=== PATIENT | male | born 1950 | race Caucasian/White ===

== ENCOUNTER 2021-06-23 06:55 | Day surgery (SDC) | payer BC ==
[2021-06-23] MEDS ORDERED: Dexamethasone 4 MG/ML SDV IV ONE (06:56)
[2021-06-23] MEDS ORDERED: Sodium Chloride 0.9% 10 ML Syringe IV ONE (06:56)
[2021-06-23] MEDS ORDERED: Midazolam 1 MG/ML 2 ML SDV IV ONE (06:56)
[2021-06-23] MEDS ORDERED: Acetaminophen 325 MG Tab PO PRN (07:00)
[2021-06-23] MEDS ORDERED: Tobramycin 0.3% Ophth Drops 5 ML Bottle EYELF ONE (07:00)
[2021-06-23] MEDS ORDERED: Phenylephrine 10% Ophth Soln 5 ML Bot EYELF ONE (07:00)
[2021-06-23] MEDS ORDERED: Tropicamide 1% Ophth Soln 15 ML Bottle EYELF ONE (07:00)
[2021-06-23] MEDS ORDERED: Povidone-Iodine 5% Sterile Ophth Soln 30 ML Bottle EYELF ONE ×2 (07:00→08:31)
[2021-06-23] MEDS ORDERED: Proparacaine 0.5% Ophth Soln 15 ML Bottle EYELF ONE (07:00)
[2021-06-23] MEDS ORDERED: Timolol Maleate 0.5% Ophth Soln 5 ML Bottle EYELF ONE (07:00)
[2021-06-23] MEDS ORDERED: Moxifloxacin 0.5% Ophth Soln 3 ML Bottle EYELF ONE (07:00)
[2021-06-23] MEDS ORDERED: Cataract Ophth Solution EYELF ONE (07:00)
[2021-06-23] MEDS ORDERED: Ondansetron 4 MG/2 ML SDV IVPUSH PRN (07:00)
[2021-06-23] MEDS ORDERED: Acetaminophen/Codeine 300-30 MG Tab PO PRN (07:00)
[2021-06-23] MEDS ORDERED: Tetracaine HCl/PF 0.5% 4 ML Bottle EYELF ONE (08:30)
[2021-06-23] MEDS ORDERED: Lidocaine 1% 30 ML SDV ONE (08:31)
[2021-06-23] MEDS ORDERED: Apraclonidine 0.5% Ophth Soln 5 ML Bot EYELF ONE (08:32)
[2021-06-23] MEDS ORDERED: Diclofenac Sodium 0.1% Ophth Soln 5 ML Bottle EYELF ONE (08:33)
[2021-06-23] MEDS ORDERED: Vancomycin 500 MG SDV EYELF ONE (08:33)
[2021-06-23] MEDS ORDERED: Balanced Salt Solution Ophth Irrig 500 ML Bottle IOCULAR ONE (08:33)
[2021-06-23] MEDS ORDERED: Dexamethasone/Neomycin/Polymyxin B Ophth Oint 3.5 GM Tube EYELF ONE (08:33)
[2021-06-23] MEDS ORDERED: Chondroitin Sulfate/Hyaluronate Sodium Ophth Inj 0.75 ML Syringe EYELF ONE (08:34)
== END 2021-06-23 09:42 | disposition home or self-care (01) ==
LOC: DL.SDS 06:55
PROVIDERS: ATTEND Ophthalmology
DX: H25.812 Combined forms of age-related cataract, left eye (principal); I10 Essential (primary) hypertension; E78.00 Pure hypercholesterolemia, unspecified; R73.01 Impaired fasting glucose; R82.2 Biliuria; Z98.890 Other specified postprocedural states; Z79.899 Other long term (current) drug therapy; Z79.82 Long term (current) use of aspirin
CPT/HCPCS: 00142; 66984; A9270; J1100; J2250; J3370; V2788

== ENCOUNTER 2021-06-30 06:53 | Day surgery (SDC) | payer BC ==
[2021-06-30] MEDS ORDERED: Dexamethasone 4 MG/ML SDV IV ONE ×2 (06:54)
[2021-06-30] MEDS ORDERED: Midazolam 1 MG/ML 2 ML SDV IV ONE ×2 (06:54)
[2021-06-30] MEDS ORDERED: Sodium Chloride 0.9% 10 ML Syringe IV ONE ×2 (06:54)
[2021-06-30] MEDS ORDERED: Phenylephrine 10% Ophth Soln 5 ML Bot EYERT ONE (07:00)
[2021-06-30] MEDS ORDERED: Acetaminophen 325 MG Tab PO PRN (07:00)
[2021-06-30] MEDS ORDERED: Acetaminophen/Codeine 300-30 MG Tab PO PRN (07:00)
[2021-06-30] MEDS ORDERED: Ondansetron 4 MG/2 ML SDV IVPUSH PRN (07:00)
[2021-06-30] MEDS ORDERED: Moxifloxacin 0.5% Ophth Soln 3 ML Bottle EYERT ONE (07:00)
[2021-06-30] MEDS ORDERED: Povidone-Iodine 5% Sterile Ophth Soln 30 ML Bottle EYERT ONE ×2 (07:00→08:22)
[2021-06-30] MEDS ORDERED: Proparacaine 0.5% Ophth Soln 15 ML Bottle EYERT ONE (07:00)
[2021-06-30] MEDS ORDERED: Cataract Ophth Solution EYERT ONE (07:00)
[2021-06-30] MEDS ORDERED: Timolol Maleate 0.5% Ophth Soln 5 ML Bottle EYERT ONE (07:00)
[2021-06-30] MEDS ORDERED: Tropicamide 1% Ophth Soln 15 ML Bottle EYERT ONE (07:00)
[2021-06-30] MEDS ORDERED: Tetracaine HCl/PF 0.5% 4 ML Bottle EYERT ONE (08:22)
[2021-06-30] MEDS ORDERED: Lidocaine 1% 30 ML SDV ONE (08:22)
[2021-06-30] MEDS ORDERED: Diclofenac Sodium 0.1% Ophth Soln 5 ML Bottle EYERT ONE (08:23)
[2021-06-30] MEDS ORDERED: Apraclonidine 0.5% Ophth Soln 5 ML Bot EYERT ONE (08:23)
[2021-06-30] MEDS ORDERED: Dexamethasone/Neomycin/Polymyxin B Ophth Oint 3.5 GM Tube EYERT ONE (08:24)
[2021-06-30] MEDS ORDERED: Chondroitin Sulfate/Hyaluronate Sodium Ophth Inj 0.75 ML Syringe EYERT ONE (08:25)
[2021-06-30] MEDS ORDERED: Balanced Salt Solution Ophth Irrig 500 ML Bottle IOCULAR ONE (08:25)
[2021-06-30] MEDS ORDERED: Vancomycin 500 MG SDV EYERT ONE (08:25)
== END 2021-06-30 09:17 | disposition home or self-care (01) ==
LOC: DL.SDS 06:53
PROVIDERS: ATTEND Ophthalmology
DX: H25.811 Combined forms of age-related cataract, right eye (principal); E78.00 Pure hypercholesterolemia, unspecified; I10 Essential (primary) hypertension; R73.01 Impaired fasting glucose; R82.2 Biliuria; Z98.890 Other specified postprocedural states; Z79.899 Other long term (current) drug therapy
CPT/HCPCS: 00142; A9270-GY; J1100; J2250; J3370; V2788-GY